=== PATIENT | female | born 1965 | race Caucasian/White ===

== ENCOUNTER 2025-06-21 16:08 | Emergency (ER) | payer OTHER, SELFPAY ==
[2025-06-21 16:33] VITALS: BP 142/80
[2025-06-21 16:57] LABS: Hematocrit 37.2 % (37.0-47.0); Hemoglobin 12.8 g/dL (12.0-16.0); Mean Corp Hgb Conc. 34.4 g/dL (33.0-37.0); Mean Corpuscular Volume 85.9 fL (81.0-99.0); Nucleated Red Blood Cells % 0 %; Platelet Count 300 10^3/uL (130-400); Red Cell Dist. Width 12.6 % (11.5-14.5)
[2025-06-21 17:14] LABS: ALT (SGPT) 21 U/L (0-35); AST (SGOT) 25 U/L (14-36); Albumin 5.0 g/dl (3.5-5.0); Alkaline Phosphatase 87 U/L (38-126); Blood Urea Nitrogen 11 mg/dl (7-17); Calcium 9.9 mg/dl (8.4-10.2); Carbon Dioxide 26 mmol/L (22-30); Chloride 102 mmol/L (98-107); Glucose 107 mg/dl (70-99); Potassium 3.8 mmol/L (3.5-5.1); Sodium 139 mmol/L (135-145); Total Protein 7.8 g/dl (6.3-8.2); eGFR > 60.00
[2025-06-21 18:05] VITALS: BP 104/72
[2025-06-21 18:15] VITALS: BP 104/72
[2025-06-21 18:31] VITALS: BMI 31.7
[2025-06-21 19:00] VITALS: BP 111/67
--- NOTE | 2025-06-21 19:53 | ED.GENMED ---
History of Present Illness
General
Chief Complaint: Blood Pressure Problem
Source: patient and spouse
Time Seen by Provider: 06/21/25 19:39
History of Present Illness
History of Present Illness:
59-year-old female presents to the emergency room concerned that her blood pressure is elevated. Patient states that she feels funny at night around midnight. She checks her blood pressure and has found it to be high. He gets up to 220 systolic.
When asked in more detail it sounds like the patient checks her blood pressure multiple times a day. She checks it while standing and at times when she is anxious. She denies any chest pain, shortness of breath, headache at this time. She does
take antihypertensives which are prescribed by her primary care doctor. She is able to perform all of activities of daily living without limitation. She admits she did not sleep last night because of her concern for her blood pressure.
Phy Exam
Physical Exam
Physical Exam:
General: Awake, Alert, Oriented X3. No acute distress.
Vitals: unremarkable
Head: Atraumatic
Eyes: Pupils equal, EOMI
Throat: Airway intact, no exudates
Neck: Trachea midline
Lungs: Clear and equal b/l
Heart: Regular rate, no murmurs
Abd: Soft, Nontender, No pulsatile mass
Neuro: Nonfocal
Skin: Warm, dry, no rash
Extremities: pulses equal b/l, no edema
Course
Orders/Labs/Results
Orders:
Orders
06/21/25 16:46
Complete Blood Count/With Diff Urgent
Comprehensive Metabolic Panel Urgent
Abnormal Lab Results
06/21/25
16:46
Absolute Neuts (auto) 7.3 H 10^3/uL
(1.4-6.5)
Absolute Monos (auto) 0.7 H 10^3/uL
(0.1-0.6)
Glucose 107 H mg/dl
(70-99)
06/21/25 16:46
06/21/25 16:46
Vital Signs
Initial and Last Documented VS:
Initial Vital Signs
Temp Pulse Resp BP Pulse Ox
98.5 F 50 18 142/80 97
06/21/25 16:33 06/21/25 16:33 06/21/25 16:33 06/21/25 16:33 06/21/25 16:33
Last Documented Vital Signs
Temp Pulse Resp BP Pulse Ox
98.5 F 68 19 111/67 96
06/21/25 16:33 06/21/25 19:30 06/21/25 19:30 06/21/25 19:00 06/21/25 19:30
MDM/Problems Addressed
Differential Diagnosis Includes:
Uncontrolled high blood pressure, anxiety
MDM/Problems Addressed:
Patient presents with a concern about her blood pressure which is elevated in the middle the night. Sounds like she is measuring her blood pressure multiple times a day and each time she measures that and it is not normal she becomes more anxious
about it. I do not believe there is any hypertensive emergency ongoing here. I do not believe she needs any new blood pressure medication. Advised her to take her blood pressure once a day and then put her blood pressure cuff away. Follow-up
with her primary care provider.
*Pulse Oximetry
SaO2: 96
Oxygen Mode of Delivery: Room air
Patient hypoxic: no
*Critical Care Note
Total Time (30-74mins, 75-104mins- exclusive of procedures): Not Applicable
ED Attending Note
-
Portions of this chart may have been created with voice recognition software.� Occasional wrong word or��sound alike� substitutions may have occurred due to the inherent limitations of voice recognition software.
Discharge Plan
Departure
Patient Disposition: Home (Routine Discharge)
Date of Disposition: 06/21/25
Time of Disposition: 19:53
Patient with high blood pressure during this ER visit?: No
Condition: Good
Discharge Problem:
Blood pressure check
Instructions: BLOOD PRESSURE
Prescriptions:
No Action
losartan 50 mg Tablet
50 mg PO DAILY
methimazole 5 mg Tablet
5 mg PO DAILY
furosemide 40 mg Tablet
40 mg PO DAILY
clonazepam 0.5 mg Tablet
0.5 mg PO 2XD
omeprazole 40 mg Capsule,Delayed Release(Dr/Ec)
40 mg PO DAILY
buspirone 15 mg Capsule
15 mg PO BID
Referrals:
NONE,* [Family Provider, Internal Medicine]
Activity Restrictions/Additional Instructions:
I believe your blood pressure is elevated at home because you are taking it at times when you are anxious. You should measure blood pressure once a day after you have been seated relaxed with your feet flat on the ground for 10 minutes. Measure it
once and then put the blood pressure cuff away.
Interventions
Interventions:
*General Assessment Last Done: 06/21/25 18:32
*Neglect/Abuse Screening Last Done: 06/21/25 16:33
*ED COVID-19 Vaccine History Last Done: 06/21/25 18:32
*ED Influenza Vaccine History Last Done: 06/21/25 18:32
[facility] Fall Risk Assessment Tool Last Done: 06/21/25 18:36
*Risk Screen - Suicide (C-SSRS) Last Done: 06/21/25 16:08
ED- Cardiac Assessment Last Done: 06/21/25 18:34
ED- Neurological Assessment Last Done: 06/21/25 18:34
ED- Pulmonary Assessment Last Done: 06/21/25 18:34
Discharge Date and Time
Print Language: SWEDISH
== END 2025-06-21 20:05 | disposition home or self-care (01) ==
LOC: EMR 16:08
PROVIDERS: Emergency Medicine; EMERGENCY PHYSICIAN Emergency Medicine
DX: I10 Essential (primary) hypertension (principal); F41.9 Anxiety disorder, unspecified
CPT/HCPCS: 99283; 80053; 85025